=== PATIENT | female | born 1960 | race Caucasian/White ===

== ENCOUNTER → 2020-03-02 11:20 | Outpatient (BNVA) | payer BC, SELFPAY | PROVIDERS: Family Provider Registered Nurse; PCP Registered Nurse; Visit Provider Registered Nurse | DX: I10 Essential (primary) hypertension (principal); E78.5 Hyperlipidemia, unspecified; E03.9 Hypothyroidism, unspecified | CPT/HCPCS: 80053; 80061; 84443; 85025; 86300 ==

== ENCOUNTER → 2021-06-14 09:35 | Outpatient (BNVA) | payer BC, SELFPAY | PROVIDERS: Family Provider Registered Nurse; PCP Registered Nurse; Visit Provider Registered Nurse | DX: I10 Essential (primary) hypertension (principal); E03.9 Hypothyroidism, unspecified; Z85.3 Personal history of malignant neoplasm of breast; E78.5 Hyperlipidemia, unspecified; R60.9 Edema, unspecified; M85.89 Other specified disorders of bone density and structure, multiple sites | CPT/HCPCS: 80053; 80061; 82378; 83880; 84443; 85025; 86300 ==

== ENCOUNTER 2021-06-24 13:23 | Outpatient (CLI) | payer BC, SELFPAY ==
--- NOTE | 2021-06-24 13:30 | XR_ITS ---
WS: [id number] Exam: XR DEXA axial skeleton* [id number] Date/Time of Exam: 06/24/2021 1:31 PM Reason For Exam: M81.0 - Age-related osteoporosis without current patholog... DEXA BONE DENSITOMETRY Curriculet The L1-L4 bone mineral density measures 0.917 g/cm2. This corresponds to a T score of -2.2 and Z scor e of -1.2. Left femoral neck bone mineral density measures 0.882 g/cm2. This corresponds to T score of -1.0 and Z score of -0.2. Right femoral neck bone mineral density measures 0.867 g/cm2. This corresponds to a T score of -1.1 a nd Z score of -0.3. Mean femoral neck bone mineral density measures 0.874 g/cm2. This corresponds to a T score of -1.1 an d Z score of -0.3 XR/XR DEXA axial skeleton* [id number] IMPRESSION: Bone mineral density lies in the osteopenic range. Refer to detailed summary.
== END 2021-06-24 13:24 | disposition home or self-care (01) ==
PROVIDERS: PCP Registered Nurse; Visit Provider Registered Nurse
DX: M81.0 Age-related osteoporosis without current pathological fracture (principal)
CPT/HCPCS: 77080

== ENCOUNTER → 2022-11-15 11:43 | Outpatient (BNVA) | payer BC, SELFPAY | PROVIDERS: PCP Registered Nurse; Visit Provider Registered Nurse | DX: I10 Essential (primary) hypertension (principal); Z13.6 Encounter for screening for cardiovascular disorders; E03.9 Hypothyroidism, unspecified; E55.9 Vitamin D deficiency, unspecified | CPT/HCPCS: 80053; 80061; 81000; 82306; 82607; 83036; 84443; 85025 ==

== ENCOUNTER → 2022-11-23 08:27 | Outpatient (BNVA) | payer BC, SELFPAY | PROVIDERS: PCP Registered Nurse; Visit Provider Registered Nurse | DX: R31.21 Asymptomatic microscopic hematuria (principal) | CPT/HCPCS: 81000; 88112 ==

== ENCOUNTER 2022-12-01 07:54 | Outpatient (CLI) | payer BC, SELFPAY ==
--- NOTE | 2022-12-01 08:37 | US_ITS ---
WS: [id number] ULTRASOUND BILATERAL BREAST HISTORY: History of bilateral breast cancer with mastectomy and implants. COMPARISON: 07/04/2019 TECHNIQUE: 2-D and Doppler. Ultrasound is performed over each breast in the area of pain. No abnormalities are identified. Implan ts are intact. No shadowing or mass. Benign-appearing lymph nodes within each axilla. US/US breast BI complete [id number] IMPRESSION: BI-RADS: 2-Benign FOLLOW-UP: See Report Negative bilateral breast ultrasound. No additional imaging recommended at this time.
== END 2022-12-01 07:55 | disposition home or self-care (01) ==
LOC: RAD 07:55
PROVIDERS: PCP Registered Nurse; Visit Provider Registered Nurse
DX: Z85.3 Personal history of malignant neoplasm of breast (principal); Z98.82 Breast implant status
CPT/HCPCS: 76641

== ENCOUNTER 2023-01-05 12:10 | Outpatient (CLI) | payer BC, SELFPAY ==
--- NOTE | 2023-01-05 | ECG_ITS ---
[facility] Test Date: 2023-01-05 Pat Name: Gloria Beard Department: Room: Gender: Female Director Meetings: : 1960 Requested By: Jocelyn Salazar Order Number: [id number] Theodore MD: Mo Howe M.D. Interpretive Statements NAME OF STUDY: TREADMILL STRESS TEST INDICATION: Screening for CAD; HIGH RISK PROCEDURE: At the baseline, the patient's blood pressure was 126/88 with a heart rate of 68. The baseline electrocardiogram showed normal sinus rhythm with normal ST-Ts.. The patient exercised for 5 minutes and 30 seconds on a standard Rj protocol. Patient attained a maximum heart rate of 162 beats per minute(100% of the maximum predicted heart rate) with a blood pressure at the peak exercise of 201/97 mm Hg. The EKG at the peak exercise revealed some nonspecific ST-T changes. Patient did not have any chest pain or any significant cardiac arrhythmias with the exercise During the recovery phase, there were no new changes. Blood pressure at the end of the recovery phase was 138/82 mm Hg with a heart rate of 103 per minute. CONCLUSION: 1. No significant EKG changes with the treadmill exercise. 2. No exercise-induced chest pain or cardiac arrhythmia 3. Slightly impaired exercise tolerance, attained a maximum of 7.0 METs Electronically Signed On 01-08-2023 0:20:46 CDT by Mo Howe M.D. [email or web address]
[2023-01-05 12:58] VITALS: BMI 29.5
[2023-01-05 13:46] VITALS: BP 138/82; PULSE 83
== END 2023-01-05 12:11 | disposition home or self-care (01) ==
PROVIDERS: PCP Registered Nurse; Visit Provider Registered Nurse
DX: Z13.6 Encounter for screening for cardiovascular disorders (principal)
CPT/HCPCS: 93017

== ENCOUNTER → 2023-02-21 11:32 | Outpatient (BNVA) | payer BC, SELFPAY | PROVIDERS: PCP Registered Nurse; Visit Provider Registered Nurse | DX: E78.5 Hyperlipidemia, unspecified (principal); B37.0 Candidal stomatitis; J30.9 Allergic rhinitis, unspecified | CPT/HCPCS: 80061 ==

== ENCOUNTER → 2023-08-08 08:23 | Outpatient (BNVA) | payer BC, SELFPAY | PROVIDERS: PCP Registered Nurse; Visit Provider Registered Nurse | DX: E03.9 Hypothyroidism, unspecified (principal); I10 Essential (primary) hypertension | CPT/HCPCS: 80053; 80061; 84443; 85025 ==

== ENCOUNTER → 2023-09-17 08:11 | Outpatient (BNVA) | payer BC, SELFPAY | PROVIDERS: PCP Registered Nurse; Visit Provider Registered Nurse | DX: I10 Essential (primary) hypertension (principal) | CPT/HCPCS: 80053 ==

== ENCOUNTER → 2023-12-01 11:35 | Outpatient (BNVA) | payer BC, SELFPAY | PROVIDERS: PCP Registered Nurse; Visit Provider Nurse Practitioner Family | DX: R05.9 Cough, unspecified (principal); B02.9 Zoster without complications; J01.00 Acute maxillary sinusitis, unspecified | CPT/HCPCS: 87400; 87426 ==

== ENCOUNTER → 2024-02-14 09:19 | Outpatient (BNVA) | payer BC, SELFPAY | PROVIDERS: PCP Registered Nurse; Visit Provider Registered Nurse | DX: Z13.6 Encounter for screening for cardiovascular disorders (principal); I10 Essential (primary) hypertension; E78.5 Hyperlipidemia, unspecified; Z00.00 Encounter for general adult medical examination without abnormal findings; Z12.39 Encounter for other screening for malignant neoplasm of breast; M81.0 Age-related osteoporosis without current pathological fracture | CPT/HCPCS: 80053; 80061 ==

== ENCOUNTER 2024-02-21 14:42 | Outpatient (CLI) | payer BC, SELFPAY ==
--- NOTE | 2024-02-21 15:00 | XR_ITS ---
WS: [id number] DEXA (DUAL ENERGY X-RAY ABSORPTIOMETRY) Bone mineral density was performed using a [employer] machine. HISTORY: M81.0 - Age-related osteoporosis without current patholog... COMPARISON: 06/24/2021 Lumbar spine BMD (L1-L4): 0.995 g/cm2 T score: -1.5 Z score: -0.3 Total hip BMD: Left: 0.857 g/cm2. T score: -1.2 Z score: -0.2 Right: 0.850 g/cm2. T score: -1.3 Z score: -0.3 10 year probability of a major osteoporotic fracture is 15.4%. Compared to the prior study from 06/24/2021. Lumbar spine bone mineral density has increased by 8.5%. Bilateral hips bone mineral density has decreased by 2.3%. IMPRESSION: OSTEOPENIA based upon the WHO classification for females. Significant increase in bone mineral density within the lumbar spine since the prior study. Significant decrease in bone mineral density in the hips since the prior study.
== END 2024-02-21 14:43 | disposition home or self-care (01) ==
LOC: RAD 14:43
PROVIDERS: PCP Registered Nurse; Visit Provider Registered Nurse
DX: M81.0 Age-related osteoporosis without current pathological fracture (principal); M85.80 Other specified disorders of bone density and structure, unspecified site
CPT/HCPCS: 77080

== ENCOUNTER → 2024-04-14 11:04 | Outpatient (BNVA) | payer BC, SELFPAY | PROVIDERS: PCP Registered Nurse; Visit Provider Registered Nurse | DX: T14.8XXA Other injury of unspecified body region, initial encounter (principal); W57.XXXA Bitten or stung by nonvenomous insect and other nonvenomous arthropods, initial encounter | CPT/HCPCS: 85025; 86618; 86666; 86757 ==

== ENCOUNTER → 2024-05-16 10:31 | Outpatient (BNVA) | payer BC, SELFPAY | PROVIDERS: PCP Registered Nurse; Visit Provider Registered Nurse | DX: M25.50 Pain in unspecified joint (principal); R50.9 Fever, unspecified | CPT/HCPCS: 86003; 86008; 86160; 86162; 86235; 86255; 86376 ==

== ENCOUNTER → 2024-06-16 15:03 | Outpatient (BNVA) | payer BC, SELFPAY | PROVIDERS: PCP Registered Nurse; Visit Provider Registered Nurse | DX: K57.92 Diverticulitis of intestine, part unspecified, without perforation or abscess without bleeding (principal) | CPT/HCPCS: 80053; 83735; 85025 ==

== ENCOUNTER 2024-08-04 07:03 | Day surgery (SDC) | payer BC, SELFPAY ==
[2024-08-04 07:19] VITALS: BP 116/97; PULSE 73; RESP 16; TEMP 36.3; O2SAT 96; BMI 27.6
[2024-08-04] MEDS: sodium chloride 0.9% 1,000 ML 30 ML IV (07:36)
--- NOTE | 2024-08-04 07:38 | ANES.PREANE2 ---
Pre-Anesthetic Assessment Height/Weight: Height 1.6 m Weight 70.76 kg Temp Pulse Resp BP Pulse Ox O2 Del Method 97.4 F L 73 16 116/97 96 Room Air 08/04/24 07:19 08/04/24 07:19 08/04/24 07:19 08/04/24 07:19 08/04/24 07:19 08/04/24 07:19 Preop Diagnosis: diverticulitis Operation Date: 08/04/24 08:20 Proposed Procedures p Colonoscopy - 52832, g0105, z12.11(Not Applicable) - Neymar Barreto MD Familial anesthetic complications: N&V combative Was Beta Gildardo taken within 24 hours: N/A Was Clonidine taken within 24 hours: N/A Last intake: Intake Last Liquid Date 08/03/24 Last Liquid Time 22:00 Last Solid Date 08/02/24 Last Solid Time 20:00 Social No alcohol and No tobacco Exam alert, oriented x 3, clear to auscultation bilaterally and regular rate & rhythm Airway Submandibular: within normal limits Cervical ROM: within normal limits Mallampati: Class II Dentition: full Pulmonary None reported CV/HEM Hypertension None reported Hepatic Biliary stricture GI Gastroesophageal Reflux Disease Metabolic Thyroid Disease Musc/skel Osteoarthritis/DJD Neuropsych None reported Anesthetic Plan ASA status: 2 Anesthesia: MAC Risk of > 500 ml blood loss (7ml/kg in children): No Medications/Allergies Home Medications Medication Instructions Recorded Confirmed Last Taken Type cholecalciferol (vitamin D3) 50 2,000 unit PO DAILY 12/30/19 08/04/24 08/03/24 History mcg (2,000 unit) tablet krill oil 500 mg capsule 500 mg PO DAILY 12/30/19 08/04/24 08/03/24 History acyclovir 400 mg tablet 400 mg PO TID PRN break out 12/01/23 08/04/24 Unknown History ipratropium bromide 21 mcg (0.03 1 spray intranasal BID 07/31/24 08/04/24 08/03/24 History %) nasal spray levothyroxine 75 mcg tablet 75 mcg PO DAILY 07/31/24 08/04/24 08/04/24 History (Synthroid) lisinopril 10 mg tablet 10 mg PO DAILY 07/31/24 08/04/24 08/03/24 History Allergies Allergy/AdvReac Type Severity Reaction Status Date / Time morphine Allergy Mild unknown Verified 08/04/24 07:18 Penicillins Allergy Mild Unknown Verified 08/04/24 07:18 Current Medications Generic Name Dose Route Start Last Admin Trade Name Zheng PRN Reason Stop Dose Admin Sodium Chloride 1,000 mls @ 30 mls/hr 08/04/24 07:15 08/04/24 07:36 Sodium Chloride 0.9% IV 30 mls/hr .Q24H NATHANIEL Administration PFSH Anesthesia Medical History Family history of heart disease Osteopenia Last dexa scan done 2014 in [place]. Essential hypertension History of breast cancer in female Dx in 2012 Hypothyroidism (acquired) Surgical History (Updated 06/19/24 @ 14:19 by NAVID Boateng) History of bilateral mastectomy 08/2013 Family History Mother , passed in 1993 CAD (coronary artery disease) Cancer, Onset Age: 53 breast Diabetes Father CAD (coronary artery disease) Hypertension Grandmother CAD (coronary artery disease) paternal Sister Cancer, Onset Age: 49 CAD (coronary artery disease) Lung disease Brother Hypertension Stroke Cardiomyopathy Social History Smoking and tobacco/nicotine status: never used tobacco/nicotine Alcohol intake: never Substance/Drug Use: never Adopted: No Caregiver/support person: No Lives independently: No Household members: spouse Marital status: Sexually active: Yes Do you think of yourself as: Straight/Heterosexual Current gender identity: Female Data Anesthesia Cardiac Studies: No Data to Display
--- NOTE | 2024-08-04 08:29 | W.PM.OPSUD ---
Surgery/Procedure H&P Update DATE OF PROCEDURE: August 04, 2024 DATE H&P PERFORMED: 06/19/24 H&P UPDATE INFORMATION: I have reviewed H&P completed within last 30 days, I have examined patient prior to procedure and No changes to prior documentation PREOP DIAGNOSIS: diverticulitis PLANNED PROCEDURE: Operation Date: 08/04/24 08:20 Proposed Procedures p Colonoscopy - 07194, g0105, z12.11(Not Applicable) - Neymar Barreto MD
[2024-08-04 09:02] VITALS: BP 124/81; PULSE 77; RESP 18; TEMP 36.2; O2SAT 91
[2024-08-04] MEDS: ondansetron 2 mg/ML SDV 2 mL 4 MG IVP (09:30)
--- NOTE | 2024-08-04 10:00 | ANE.PACU2 ---
Inpatient post-anesthesia follow up: Airway intact: Yes Vital signs: Temperature 97.1 F Pulse Rate 77 Respiratory Rate 18 Blood Pressure 124/81 Pulse Oximetry 91 Oxygen Delivery Me thod Room Air Oxygen Flow Rate Fraction of Inspir ed Oxygen Hydration adequate: Yes Nausea and vomiting: No Pain level: 1 Mental status: Baseline
--- NOTE | 2024-08-05 14:33 | P.HP_ITS ---
Providers/Chief Complaint Primary Care Provider: HARMAN Todd Chief Complaint: Z12.11 History of Present Illness 63-year-old female who is referred for diagnostic colonoscopy. She has a history of diverticulitis. First diagnosed in 2010 she had the first episode. She had a repeat colonoscopy in 2015 which was unremarkable. She required an ED visit for another episode of diverticulitis 12 days ago for which she was t reated with oral antibiotics. Today she reports mild abdominal pain. No fevers. No unintentional weight loss. She does endorse hematochezia as well as decreased stool caliber. She is a non-smoker. Abdominal surgeries: Lap kala approx 2014. Medications/Allergies Home Medications Medication Instructions Recorded Confirmed Last Taken Type cholecalciferol (vitamin D3) 50 2,000 unit PO DAILY 12/30/19 08/04/24 08/03/24 History mcg (2,000 unit) tablet krill oil 500 mg capsule 500 mg PO DAILY 12/30/19 08/04/24 08/03/24 History acyclovir 400 mg tablet 400 mg PO TID PRN break out 12/01/23 08/04/24 Unknown History ipratropium bromide 21 mcg (0.03 1 spray intranasal BID 07/31/24 08/04/24 08/03/24 History %) nasal spray levothyroxine 75 mcg tablet 75 mcg PO DAILY 07/31/24 08/04/24 08/04/24 History (Synthroid) lisinopril 10 mg tablet 10 mg PO DAILY 07/31/24 08/04/24 08/03/24 History Allergies Allergy/AdvReac Type Severity Reaction Status Date / Time morphine Allergy Mild unknown Verified 08/04/24 07:18 Penicillins Allergy Mild Unknown Verified 08/04/24 07:18 PFSH Acute PFSH: Medical History (Updated 08/05/24 @ 14:35 by Neymar Barreto MD) Family history of heart disease Osteopenia Last dexa scan done 2014 in [place]. Essential hypertension History of breast cancer in female Dx in 2012 Hypothyroidism (acquired) Surgical History (Updated 06/19/24 @ 14:19 by NAVID Boateng) History of bilateral mastectomy 08/2013 Family History Mother , passed in 1993 CAD (coronary artery disease) Cancer, Onset Age: 53 breast Diabetes Father CAD (coronary artery disease) Hypertension Grandmother CAD (coronary artery disease) paternal Sister Cancer, Onset Age: 49 CAD (coronary artery disease) Lung disease Brother Hypertension Stroke Cardiomyopathy Social History Smoking and tobacco/nicotine status: never used tobacco/nicotine Alcohol intake: never Substance/Drug Use: never Adopted: No Caregiver/support person: No Lives independently: No Household members: spouse Marital status: Sexually active: Yes Do you think of yourself as: Straight/Heterosexual Current gender identity: Female Vitals/I&O/Wt Last Vital Signs Temp 97.1 F L 08/04/24 09:02 Pulse 77 08/04/24 09:02 Resp 18 08/04/24 09:02 BP 124/81 08/04/24 09:02 Pulse Ox 91 08/04/24 09:02 O2 Del Method Room Air 08/04/24 09:02 Weight last 48 hrs Weight 156 lb Physical Exam Narrative: Chest: Unlabored breathing room air. No lymphadenopathy. Heart: Regular rate and rhythm. Abdomen: Soft, nontender, nondistended. No masses or lymphadenopathy. A&P Assessment and plan (1) Encounter for screening colonoscopy: Plan 63-year-old female who presents for screening colonoscopy. Attestations Medical Necessity Statement*: N/A Coding Level of Care Code 88877 Diagnoses Encounter for screening colonoscopy Z12.11 Time Spent (min) 30
== END 2024-08-04 10:01 | disposition home or self-care (01) ==
PROVIDERS: PCP Registered Nurse; Visit Provider Student in an Organized Health Care Education/Training Program
PROC: 0DJD8ZZ Inspection of Lower Intestinal Tract, Via Natural or Artificial Opening Endoscopic (ICD-10-PCS; CPT 45378; principal; 2024-08-04 08:20)
DX: Z12.11 Encounter for screening for malignant neoplasm of colon (principal); I10 Essential (primary) hypertension; Z85.3 Personal history of malignant neoplasm of breast; E03.9 Hypothyroidism, unspecified; K57.30 Diverticulosis of large intestine without perforation or abscess without bleeding
CPT/HCPCS: 45380; J2405; J2704; J7030

== ENCOUNTER → 2024-08-06 08:49 | Outpatient (BNVA) | payer BC, SELFPAY | PROVIDERS: PCP Registered Nurse; Visit Provider Registered Nurse | DX: E03.9 Hypothyroidism, unspecified (principal); I10 Essential (primary) hypertension; E78.5 Hyperlipidemia, unspecified | CPT/HCPCS: 80053; 80061; 84443; 85025 ==

== ENCOUNTER → 2025-01-29 14:32 | Outpatient (BNVA) | payer MEDICARE, SELFPAY | PROVIDERS: PCP Registered Nurse; Visit Provider Registered Nurse | DX: J20.4 Acute bronchitis due to parainfluenza virus (principal) | CPT/HCPCS: 80048; 85025 ==

== ENCOUNTER → 2025-02-16 10:17 | Outpatient (BNVA) | payer MEDICARE, SELFPAY | PROVIDERS: PCP Registered Nurse; Visit Provider Registered Nurse | DX: Z13.6 Encounter for screening for cardiovascular disorders (principal) | CPT/HCPCS: 80053; 80061 ==

== ENCOUNTER → 2025-04-16 12:11 | Outpatient (BNVA) | payer MEDICARE, SELFPAY | PROVIDERS: PCP Registered Nurse; Visit Provider Registered Nurse | DX: M85.89 Other specified disorders of bone density and structure, multiple sites (principal); E03.9 Hypothyroidism, unspecified; L65.9 Nonscarring hair loss, unspecified | CPT/HCPCS: 80053; 82306; 82607; 84443 ==

== ENCOUNTER → 2025-06-11 08:28 | Outpatient (BNVA) | payer MEDICARE, SELFPAY | PROVIDERS: PCP Registered Nurse; Visit Provider Nurse Practitioner Family | DX: L65.0 Telogen effluvium (principal); D22.62 Melanocytic nevi of left upper limb, including shoulder; L57.0 Actinic keratosis | CPT/HCPCS: 17000; 99203 ==